=== PATIENT | male | born 1960 | race Caucasian/White ===

== ENCOUNTER 2025-02-20 05:54 | Day surgery (SDC) | payer OTHER, SELFPAY ==
[2025-02-10 13:58] VITALS: BMI 26.7
[2025-02-20] VITALS (9 sets, daily range): BP systolic 118–170; BP diastolic 67–101; BMI 26.7
[2025-02-20] MEDS: TYLENOL 1000 MG PO (06:21)
[2025-02-20] MEDS: VERSED SYRUP 10 MG PO (06:56)
--- NOTE | 2025-02-20 07:08 | W.SUR.PREOP ---
Pre-Operative Surgical Note
-
I have examined this patient prior to the performance of the scheduled procedure.
The patient's condition is unchanged from the time of the current History and
Physical and the patient is able to undergo the scheduled procedure.
--- NOTE | 2025-02-20 07:08 | HP.FOC2 ---
Focused History & Physical
Chief Complaint
HPI:
Chief Complaint: Right inguinal hernia
HPI / Indication for Planned Procedure: This is a 64-year-old male who presents with a symptomatic right, possible left inguinal hernia. Will plan for robotic right possible left inguinal hernia repair with mesh.
Relevant Past Medical History: Negative
Relevant Social History: Negative
Relevant Family History: Negative
Relevant Past Surgical History: Negative
Review of Systems
Review of Pertinent Systems: All Systems Negative
Medication
See Medication form for detailed medications: Yes
Medication List (including Herbals & OTC):
cetirizine 10 mg tablet (Zyrtec) 10 mg PO DAILY PRN allergies 12/19/19
diphenhydramine 25 mg-acetaminophen 500 mg tablet (Tylenol PM Extra Strength) 1 ea PO QPM PRN insomnia 12/19/19
cfhwptomt-AXA-PS-acetaminophen 7.5 mg-60 [id number]/30mL oral liqd 1 ml PO PRN PRN cold 02/13/25
ibuprofen-diphenhydramine citrate 200 mg-38 mg tablet (Advil PM) 1 cap PO HS PRN pain 02/13/25
Medications Reviewed: Yes
Allergies and Reactions
Patient has Allergies: No
Noted Allergies and Reactions:
Allergy/AdvReac Type Severity Reaction Status Date / Time
No Known Allergies Allergy Verified 02/20/25 06:14
Pertinent Physical Exam
All Other Systems: Negative
Head/Neck: Normal
Diagnosis / Assessment
this is a 64-year-old male who presents with a symptomatic right, possible left inguinal hernia. Will plan for robotic right possible left inguinal hernia repair with mesh.
Plan / Procedure
this is a 64-year-old male who presents with a symptomatic right, possible left inguinal hernia. Will plan for robotic right possible left inguinal hernia repair with mesh.
--- NOTE | 2025-02-20 08:02 | PTCARENOTE ---
Pt extremely anxious pre-op- pt stated that he thought about cancelling his surgery today due to same. Pt stated that he drove himself to hospital today- pt made aware that he is not permitted to drive himself home and he did provide his 's name
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 Pt restless and stated that he doesn't think that he will be able to/allow the nurse to place an IV today and that he does not want to have anesthesia today. John Clemens and Judi notified of this- Pt brought
to phone in [facility] and spoke to his surgeon via phone. Dr Lau spoke to pt at bedside and Dr Clemens spoke to pt at bedside. Pt ordered and given po Versed. Pt consented to IV placement in [facility] pre-op. Report given to JUSTIN Villatoro and FANTASMA Strickland at
bedside pre-op and pt taken to OR at 07:05 am.
--- NOTE | 2025-02-20 08:48 | W.IMMPOSTOP ---
Surgical Immed Post Op Note
-
Primary Surgeon: Benjy Clemens MD
Assisting Surgeon: None
Pre-op Diagnosis: Right inguinal hernia
Post-op Diagnosis: Same
Procedure Performed:
1. Robotic right inguinal hernia repair with mesh.
2. 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
Anesthesia Type: General
Specimen / Cultures: Right cord lipoma
Estimated Blood Loss: 3 cc
Complications: None
Operative Findings: Large indirect inguinal hernia. No direct or femoral components. Very large cord lipoma excised. After achieving the critical view of the MPO the space was reinforced with an extra-large Bard 3D max mid weight uncoated
polypropylene mesh. No defect was noted on the patient's left side after taking down adhesions overlying this area from the sigmoid colon.
--- NOTE | 2025-02-20 08:49 | OR.RPT ---
Operative Report
Operative Report
Patient Name: Bernard Escobar
: 1960
Date of Operation: 02/20/2025
Preoperative Diagnosis: Reducible Inguinal hernia, right
Postoperative Diagnosis: Same
Procedure(s):
1. Robotic right inguinal Hernia Repair with mesh, (DALTON approach)
2. Excision of lesion of a spermatic cord lipoma ([id number])
Surgeon(s):
Dr. Clemens
Oyster Shipper(s):
None
Anesthesia: General
Estimated Blood Loss: 3 cc
Urine Output: None
Drains/Lines/Implants: XLarge 3D Max Bard mid weight uncoated polypropylene mesh
Specimens: Right cord lipoma
Indication for surgery: The patient has a history of groin pain and noted on exam to have a right, possible left inguinal Hernia(s). Following review of therapeutic options they have elected to undergo a minimally invasive repair.
Operative Findings: Large indirect inguinal hernia. No direct or femoral components. Very large cord lipoma excised. After achieving the critical view of the MPO the space was reinforced with an extra-large Bard 3D max mid weight uncoated
polypropylene mesh. No defect was noted on the patient's left side after taking down adhesions overlying this area from the sigmoid colon.
Details of the operation:
The patient was brought to the Operating Room and placed in the supine position with the arms tucked. IV antibiotics were infused and Venodyne stockings placed. Following uneventful induction of general endotracheal anesthesia, an orogastric tube
was placed. The abdomen was prepped and draped in the usual sterile fashion. The abdomen was entered using a Veress technique which required 1 pass, pneumoperitoneum to 15 mmHg was obtained without difficulty. An 8mm trochar was passed through the
abdominal wall roughly 20 cm cephalad to the inguinal canal. We then confirmed that no inadvertent injury was made while passing the trocar or Veress needle. We then placed two additional 8 mm ports in the left upper and right upper quadrants. We
then docked the robot with a Prograsper in the left hand port and monopolar scissors in the right. An obvious large right indirect inguinal hernia was immediately identified. There was some adhesions over the left inguinal space from the sigmoid
colon which were carefully lysed, no hernia defect was noted on the side. We then began by creating a flap at the level of the ASIS laterally on the right side working our way medially to the medial umbilical fold. Staying onto the peritoneum we
were able to circumferentially dissect around the hernia sac and and peel it off of the underlying spermatic cord and testicular vessels, taking care to preserve them. Medially we identified the midline pubis as well as Dennis's ligament and
ensured to dissect 2 cm below the pubic rim over the bladder. After exposure of the entire myopectineal orifice we identified and reduced: A large indirect inguinal hernia, no direct or femoral components, a large cord lipoma which was reduced and
excised.
We then fixated an X-large 3D max mesh with a 2-0 Vicryl stitch at coopers medially and superior laterally. The flap was then closed with a running 2-0 barbed monocryl suture ensuring that the tail was cut flush with the medial fat pad so that no
barbs were exposed. During the closure of the flap an Angiocath was inserted and 20 cc of quarter percent Marcaine was instilled. The area in the flap cavity was then evacuated of air confirming that the mesh was flush and there were no folds. A
small rent in the peritoneum was noted and closed with 2-0 Vicryl. All needles, specimens and instruments were then removed and the robot was undocked. The abdomen was then desufflated, and pneumoperitoneum evacuated. All skin sites were then
closed with 4-0 Monocryl followed by Dermabond. Counts were correct and overall, the patient tolerated the procedure well and was taken to the Recovery Room postoperatively in stable condition.
I was the attending physician and performed the procedure with no assistance. I was present for all portions of the case.
Benjy Clemens MD
== END 2025-02-20 10:54 | disposition home or self-care (01) ==
LOC: SDS 05:54
PROVIDERS: ATTENDING PHYSICIAN Surgery
DX: K40.90 Unilateral inguinal hernia, without obstruction or gangrene, not specified as recurrent (principal)
CPT/HCPCS: 49650; 36415; 88304; 93005; C1781